=== PATIENT | female | born 1990 | race Caucasian/White ===

== ENCOUNTER 2018-05-21 04:53 | Emergency (ER) | payer OTHER, SELFPAY ==
[2018-05-21 04:54] VITALS: BP 139/75; PULSE 106; RESP 18; TEMP 36.8; O2SAT 97; BMI 27.6
--- NOTE | 2018-05-21 05:05 | ED.VISSUMM ---
- ER Visit Summary Date of Service: 05/21/18 Chief Complaint: [] Medication side effects History of Present Illness: The patient is a 27 F patient recently started duloxetine and BuSpar unknown yesterday before bed and woke up at 230 feeling racing heartbeat shakiness nausea and a mild frontal headache. No home treatment. She had a panic attack recently and saw her doctor as an outpatient and restarted these medications that she was off for the prior 8 months for anxiety. She is unsure if she took a entry-level dose or a dose that she had been taking at the end of her stent with these medications. Nonetheless she is having side effects Physical Examination: [] Vital signs reviewed General: Well-nourished well-developed Head: Normocephalic atraumatic Eyes: Pupils equal round and reactive to light extraocular movements intact ENT: TMs clear no hemotympanum no trauma Neck: Nontender full range of motion Cardiovascular: Regular cardia rhythm no murmurs normal S1-S2 Respiratory: No distress clear to auscultation bilaterally chest nontender Abdomen: Soft nontender nondistended normal bowel sounds no masses Back: Nontender no CVA tenderness Extremities: Nontender active range of motion ?4 extremities no trauma Skin: Normal color no trauma Neuro alert oriented cranial nerves II through XII intact normal strength sensation reflexes Test Results: [] Emergency Department Course and Treatment: [] Patient is having side effects from her medications that she will hold for now. She will reach out to her doctor to decide what to do in the future as far as taking these medications. Given oral Zofran and ibuprofen. She will have to wait for them to exit her system. She will avoid caffeine and stimulants. She will be given a prescription for Zofran for home Treatment Plan: [] Disposition: [] Impression: [] Medication side effects This note was generated with [employer] dictation software. It may contain incorrect words, spelling, and punctuation that were not noted in review of the chart prior to signing ED Disposition - Plan for ED Patient: Chief Complaint: General Illness Referrals: Sunny Roberts MD [Primary Care Provider] -
--- NOTE | 2018-05-21 05:07 | ED.DEP ---
ED Disposition - Plan for ED Patient: Disposition: Home or Assisted Living Chief Complaint: General Illness Instructions: ED Nausea Vomiting Prescriptions: Ondansetron [Zofran Odt] 4 mg PO Q8H PRN PRN #10 tab PRN Reason: Nausea Referrals: Sunny Roberts MD [Primary Care Provider] -
[2018-05-21] MEDS: Ibuprofen 400 MG Tablet 800 MG PO (05:12)
[2018-05-21] MEDS: Ondansetron ODT 4 MG Tablet 8 MG PO (05:12)
[2018-05-21 05:28] VITALS: BP 119/78; PULSE 102; RESP 16; O2SAT 100
--- NOTE | 2018-05-21 05:29 | ED.RN ---
THIS NURSE REVIEWED D/C INSTRUCTIONS WITH PT. PT VERBALIZED UNDERSTANDING OF INSTRUCTIONS. PT DENIES FURTHER NEEDS OR QUESTIONS AT THIS TIME. PT AMBULATES FROM ROOM ON OWN WITHOUT ASSISTANCE FROM STAFF
== END 2018-05-21 05:29 | disposition home or self-care (01) ==
LOC: ED 05:18
PROVIDERS: Emergency Provider Emergency Medicine; PCP Family Medicine
DX: R00.0 Tachycardia, unspecified (principal); R11.0 Nausea; R51 Headache; T43.215A Adverse effect of selective serotonin and norepinephrine reuptake inhibitors, initial encounter; T43.595A Adverse effect of other antipsychotics and neuroleptics, initial encounter; F41.0 Panic disorder [episodic paroxysmal anxiety]; Z79.899 Other long term (current) drug therapy; Y92.002 Bathroom of unspecified non-institutional (private) residence as the place of occurrence of the external cause
CPT/HCPCS: 99283

== ENCOUNTER 2025-01-04 16:01 | Emergency (ER) | payer OTHER, SELFPAY ==
[2025-01-04 16:02] VITALS: BP 142/80; PULSE 96; RESP 18; TEMP 36.8; O2SAT 100; BMI 28.1
--- NOTE | 2025-01-04 16:55 | EKG12_ITS ---
Test Reason : PALPITATIONS Blood Pressure : */* mmHG Vent. Rate : 81 BPM Atrial Rate : 81 BPM P-R Int : 130 ms QRS Dur : 94 ms QT Int : 382 ms P-R-T Axes : 74 89 51 degrees QTcB Int : 443 ms Normal sinus rhythm Nonspecific ST abnormality Abnormal ECG No previous ECGs available Confirmed by TOM THAKKAR, SONI ([id number]), technical editor JOHNNIE ANDERSON ([id number]) on 01/07/2025 9:49:39 AM Referred By: Confirmed By: SONI SANTOS MD
--- NOTE | 2025-01-04 16:55 | RAD_ITS ---
PROCEDURE: CHEST PA AND LATERAL 01/04/2025 REASON FOR EXAM: CHEST PAIN TECHNIQUE: Frontal and lateral views of the chest. COMPARISON: None FINDINGS: Hardware: None Heart: The heart size is normal. Mediastinum: The mediastinal contour is unremarkable. Lungs: The lungs are clear. Bones: The bones are unremarkable. RAD/Chest PA and Lateral IMPRESSION: NO ACUTE FINDINGS. Reading Location: [facility]
--- NOTE | 2025-01-04 16:56 | ED.VIS.CHEST ---
HPI History of Present Illness Chief Complaint: Palpitations Informant: patient Onset/Context/Timing Onset: Days (5) Activity at onset: gradual Timing: Continuous Worsened By: Exertion Relieved By: Nothing Associated Symptoms: Positive for Lightheadedness and Palpitations; Negative for Nausea, Vomiting, Diaphoresis, Dyspnea, Cough, Fever or Acid Reflux Narrative Narrative: Patient presents with palpitations that have been constant for the past 5 days. Patient states they have gradually gotten worse. Patient states she feels dizzy and lightheaded with them. Patient states she feels her heart racing at times. Patient denies any chest pain. Patient denies any shortness of breath or cough. Patient denies any nausea or vomiting. Patient states she recently had her Concerta increased by her psychiatrist. Patient states that since this was increased, her symptoms have gotten worse. CVD Risk Factors: Negative for Hypertension, Diabetes, Hypercholesterolemia, Family History 1' </=55 or Smoking PE Risk Factors: Negative for Recent Travel/Surgery, Recent Immobilization, Prior DVT or PE, Cancer or OCP + Smoking + >/=35 PFSH PFSH Medical History no medical history Home Medications ?Medication ?Instructions ?Recorded ?Last Taken ?Type buspirone 5 mg tablet 7.5 mg PO DAILY 05/21/18 Unknown History duloxetine 60 mg capsule,delayed 60 mg PO DAILY 05/21/18 Unknown History release ondansetron 4 mg disintegrating 4 mg PO Q8H PRN PRN Nausea #10 tabs 05/21/18 Unknown Rx tablet Allergy/AdvReac Type Severity Reaction Status Date / Time sertraline (From Zoloft) AdvReac Mild PT. Verified 01/04/25 16:03 REPORTS HAVING CRAZY THOUGHTS Family History no significant family his Surgical History (Updated 01/04/25 @ 18:[address] Mitesh Gunn DO) Hx of section Surgical History no surgical history Social History Smoking Status: Never smoker ROS ROS ED Constitutional Constitutional ED: Denies chills or fever(s) Eyes Eyes: Denies blurry vision or change in vision ENT ENT ED: Denies rhinorrhea or sore throat Cardiovascular Cardiovascular: Reports palpitations and racing heartbeat; Denies chest pain Respiratory/Chest Respiratory/Chest: Denies cough or dyspnea Gastrointestinal Gastrointestinal: Denies nausea or vomiting Genitourinary Genitourinary ED: Denies dysuria or hematuria Musculoskeletal Musculoskeletal: Denies back pain or neck pain Integumentary Denies abscess or rash Neurologic Neurologic: Denies headache(s) or weakness Allergic/Immunologic Allergic/Immunologic ED: Denies mouth swelling or urticaria EXAM Physical Exam Const Vital Signs: 01/04/25 16:02 01/04/25 16:44 01/04/25 16:59 Temperature 98.2 F Temperature Source Oral Pulse Rate 96 Respiratory Rate 18 Respiratory Effort Normal Non-Labored Blood Pressure 142/80 H Blood Pressure Mean 100 Pulse Ox 100 98 Oxygen Delivery Method Room Air Room Air 01/04/25 18:02 01/04/25 20:00 Temperature Temperature Source Pulse Rate 78 94 Respiratory Rate 14 16 Respiratory Effort Blood Pressure 104/64 112/78 Blood Pressure Mean 77 89 Pulse Ox 100 98 Oxygen Delivery Method Room Air Positive well nourished and well developed Constitutional Narrative: BMI is 28.2 General Appearance ED: well developed and NAD HEENT Reports moist mucous membranes Neck supple and no JVD Resp normal respiratory effort and clear to auscultation bilaterally Cardio regular rate and regular rhythm GI soft to palpation, non-tender and non-distended Extremity General Extremety ED: Negative for edema or tenderness General Extremity: Negative for edema Neuro oriented x3, CN's II-XII intact bilaterally and no sensory deficits noted Sensorium / Orientation: awake and alert Motor Exam: strength 5/5 throughout Psych mental status grossly normal Heart Score History: Slightly/Non-Suspicious ECG: Nonspecific Repolarization Age: </= 45 years Risk Factors: No Risk Factors Troponin: </= Normal Limit Score: 1 MDM MDM MDM Narrative Medical decision making narrative: Differential diagnosis includes cardiac dysrhythmia, cardiac ischemia, electrolyte abnormality, pneumonia, bronchitis, pulmonary embolism, and medication side effect. EKG will be obtained to assess for cardiac dysrhythmia and cardiac ischemia. Chest x-ray will be obtained to assess for pneumonia or bronchitis. CBC will be obtained to assess for leukocytosis and anemia. Basic metabolic profile will be obtained to assess for electrolyte abnormality and renal function. D-dimer will be obtained to assess for pulmonary embolism. High-sensitivity troponin will be obtained to assess for cardiac ischemia. 2-hour repeat high-sensitivity troponin will be obtained to assess for ongoing cardiac ischemia. Lab Data Attestation: I reviewed the patient's lab results. Lab results narrative: CBC was reviewed and was within normal limits. Basic metabolic profile was reviewed and was within normal limits. D-dimer was reviewed and was 0.27. High-sensitivity troponin was reviewed and was less than 6. 2-hour repeat high-sensitivity troponin was reviewed and was less than 6. Labs: Laboratory Results - last 24 hr 01/04/25 01/04/25 16:55 18:55 WBC 5.5 RBC 4.59 Hgb 13.9 Hct 40.1 MCV 87.4 MCH 30.3 MCHC 34.7 RDW Std Deviation 41.5 RDW Coeff of [place] 13.1 Plt Count 323 MPV 10.8 Immature Gran % (Auto) 0.200 Neut % (Auto) 49.3 Lymph % (Auto) 40.9 [place] % (Auto) 4.5 Eos % (Auto) 4.4 Baso % (Auto) 0.7 Absolute Neuts (auto) 2.7 Absolute Lymphs (auto) 2.25 Nucleated RBC % 0 D-Dimer Quant (PE/DVT) 0.27 Sodium 138 Potassium 4.0 Chloride 103 Carbon Dioxide 23.6 Anion Gap 11 BUN 9 Creatinine 0.83 Estim Creat Clear Calc 95.29 Est GFR (MDRD) Non-Af 95 BUN/Creatinine Ratio 10.2 Glucose 84 Calcium 9.5 Troponin T High Sens < 6 Troponin T Hi Sens 2 Hr < 6 Radiography Diagnostic Testing: Clinical Impression(s) from Imaging Studies Chest X-Ray 01/04/25 16:55 IMPRESSION: NO ACUTE FINDINGS. Reading [facility] EKG Initial EKG: Attestation: I personally reviewed and interpreted this EKG as follows: Interpretation: Sinus Rhythm (81) and Non-Specific ST Changes Comments: EKG was obtained. On my independent interpretation, it showed a normal sinus rhythm with a rate of 81. AL interval, QRS interval, and QTc intervals were all normal. [place] was normal. There are nonspecific ST-T wave changes. Prior EKG tracings: not available for review Prior: No Prior Treatment and Re-Evaluation :: Patient was given aspirin. Patient was advised of her findings. Patient has a HEART score of 1. Patient was advised that this is low risk for acute cardiac event. Patient was instructed to follow-up with Dr. Crowley regarding change in her Concerta. Patient was instructed to return if worse in any way. Patient understood and was agreeable with the plan. All questions were answered. Discharge Plan Triage Chief Complaint: Palpitations ED Provider: Mitesh Gunn Dx/Rx/DC Orders Clinical Impression: Heart palpitations, Medication side effect Instructions: ED Palpitations Prescriptions: No Action buspirone 5 MG tablet 7.5 mg PO DAILY duloxetine 60 MG capsule,delayed release(DR/EC) 60 mg PO DAILY ondansetron 4 MG tablet 4 mg PO Q8H PRN PRN (Reason: Nausea) Qty: 10 0RF Primary Care Provider: Sunny Roberts Referrals: Sunny Roberts MD [Primary Care Provider] - 5-7 Days Olvin Crowley DO [Med Staff - Basketball Player] - 3-5 Days Print Language: Citizen Of [place] Disposition Disposition: Home, Self Care
[2025-01-04 16:59] VITALS: O2SAT 98
[2025-01-04] MEDS: Aspirin 81 MG TAB.CHEW 324 MG PO (17:01)
[2025-01-04 17:09] LABS: Absolute Lymphocyte Count 2.25 X10^3/uL (0.83-4.51); Absolute Neutrophil Count 2.7 X10^3/uL (2.0-7.7); Basophil# 0.04 X10^3/uL; Basophil% 0.7 % (0-1); Eosinophil# 0.24 X10^3/uL; Eosinophils% 4.4 % (0-5); Hematocrit 40.1 % (37-47); Hemoglobin 13.9 g/dL (12.0-15.0); Lymphocyte # 2.25 X10^3/ul (0.83-4.51); Lymphocyte % 40.9 % (19-41); Mean Corp Hgb Conc 34.7 g/dL (32-36); Mean Corpuscular Hgb 30.3 pg (27.0-32.0); Mean Corpuscular Volume 87.4 fL (81-99); Mean Platelet Vol. 10.8 fl (6.2-12.0); Monocyte# 0.25 X10^3/uL; Monocyte% 4.5 % (0-10); NRBC Flagged by Analyzer 0 % (0-5); Neutrophil # 2.71 X10^3/uL (2.7-7.7); Neutrophil % 49.3 % (47-70); Platelet Count 323 K/mm3 (150-450); RBC Distribution Width CV 13.1 % (11.6-14.6); RBC Distribution Width SD 41.5 fl (35.1-43.9); Red Blood Count 4.59 M/mm3 (4.2-5.4); White Blood Count 5.5 K/mm3 (4.4-11.0)
[2025-01-04 17:26] LABS: D-Dimer Quantitative (DVT/PE) 0.27 FEU/ug/m (0.27-0.49)
[2025-01-04 17:46] LABS: Anion Gap 11 (5-15); BUN 9 mg/dL (4-19); BUN/Creat Ratio 10.2 RATIO (10-20); Calcium,Total 9.5 mg/dL (7.6-11.0); Carbon Dioxide 23.6 mmol/L (21.0-32.0); Chloride 103 mmol/L (98-108); Creatinine, Serum 0.83 mg/dL (0.70-1.20); EST Glomerular Filtration Rate 95 (>60); Estimated Creatinine Clearance 95.29 ml/min (50-250); Glucose 84 mg/dL (70-99); Sodium Level 138 mmol/L (133-145); Troponin T High Sensitivity < 6 ng/L (<=14)
[2025-01-04 18:02] VITALS: BP 104/64; PULSE 78; RESP 14; O2SAT 100
[2025-01-04 19:46] LABS: Troponin T High Sens 2 HR < 6 ng/L (<=14)
[2025-01-04 20:00] VITALS: BP 112/78; PULSE 94; RESP 16; O2SAT 98
[2025-01-04 20:38] VITALS: BP 112/78; PULSE 94; RESP 16; TEMP 36.6; O2SAT 98
== END 2025-01-04 20:38 | disposition home or self-care (01) ==
PROVIDERS: Emergency Provider Emergency Medicine; PCP Family Medicine; Visit Provider Emergency Medicine
DX: R00.2 Palpitations (principal); T43.635A Adverse effect of methylphenidate, initial encounter
CPT/HCPCS: 71046; 80048; 84484; 85025; 85379; 93005; 99283; A4216